=== PATIENT | male | born 1945 | race Caucasian/White ===

== ENCOUNTER → 2021-11-08 10:10 | Outpatient (CLI) | payer MEDICARE, OTHER, SELFPAY ==
--- NOTE | 2021-11-08 10:16 | DI.RAD.S_ITS ---
PROCEDURE: XR THORACIC SPINE 3V INDICATIONS: thoracic and low back pain TECHNIQUE: 3 views of the thoracic spine were acquired. COMPARISON: [facility], , CHEST 2 VIEW, 03/28/2017, 16:17. FINDINGS: Bones: Multilevel degenerative changes. There is wedge deformity identified at T12, unchanged compared to 2017. Also mid level vertebral body height loss is present, also unchanged. Degenerative anterior osteophytes and disc space narrowing are most prominent at L2-3. No suspicious bony lesions. 12 pairs of ribs are noted, and appear intact where visualized. Soft tissues: No paravertebral stripe thickening. IMPRESSION: Multilevel degenerative changes as above. Dictated by: Michelle Lindsey M.D. on 11/08/2021 at 14:35 Approved by: Michelle Lindsey M.D. on 11/08/2021 at 14:37
--- NOTE | 2021-11-08 10:16 | DI.RAD.S_ITS ---
PROCEDURE: XR LUMBAR SPINE 2-3V INDICATIONS: thoracic and low back pain TECHNIQUE: 3 views of the lumbar spine were acquired. COMPARISON: [facility], CR, XR THORACIC SPINE 3V, 11/08/2021, 10:10. FINDINGS: Bones: 5 [id number] vertebrae are present. Mild dextroscoliosis centered at the L3 level. Moderate multilevel disc height loss with endplate sclerosis and spurring. Moderate L4-L5 and L5-S1 facet joint arthropathy. No vertebral body compression fractures. No suspicious bony lesions. Soft tissues: Overlying bowel gas pattern is normal. No suspicious soft tissue calcifications. IMPRESSION: Multilevel spondylosis. Dictated by: Les Sanchez RRRobbi Interpreted: Giovanny Hyde MD on 11/08/2021 at 10:40 Transcribed by: LONG on 11/08/2021 at 10:41 Approved by: Giovanny Hyde M.D. on 11/08/2021 at 11:05
== END ==
PROVIDERS: PCP Family Medicine; Referring Provider Family Medicine; Visit Provider Family Medicine
DX: M54.6 Pain in thoracic spine (principal); M54.50 Low back pain, unspecified; M47.816 Spondylosis without myelopathy or radiculopathy, lumbar region; M47.817 Spondylosis without myelopathy or radiculopathy, lumbosacral region; M47.814 Spondylosis without myelopathy or radiculopathy, thoracic region
CPT/HCPCS: 72072; 72100

== ENCOUNTER → 2022-02-25 11:38 | Outpatient (CLI) | payer MEDICARE, OTHER, SELFPAY ==
[2022-02-25 14:00] LABS: COVID-19 CEPHEID PCR (VTM/NP) Negative (Negative)
== END ==
PROVIDERS: PCP Family Medicine; Visit Provider Family Medicine Sleep Medicine
DX: Z20.822 Contact with and (suspected) exposure to COVID-19 (principal)
CPT/HCPCS: C9803; U0003; U0005